=== PATIENT | female | born 1950 | race Caucasian/White ===

== ENCOUNTER → 2018-08-12 | Day surgery (SDC) | payer OTHER ==
[~2018-08-12] MED LIST: LIBRAX PO; PREVACID15 M1 PO; RECTICARE30 GM TOP; ULTRACET PO; ZANTAC150 MG PO
== END | disposition home or self-care (01) ==
LOC: ADM 08-07 10:15 → CIR.AMB 05:40
DX: K62.0 Anal polyp (principal); K62.1 Rectal polyp